=== PATIENT | female | born 1970 | race African-American/Black ===

== ENCOUNTER 2017-06-04 03:17 | Emergency (ER) | payer OTHER ==
[~2017-06-04] VITALS: Ht 165.1 cm; Wt 61.0 kg
[2017-06-04 03:41] VITALS: BP 138/84
[2017-06-04] MEDS ORDERED: PredniSONE 20 MG TABLET PO ONE (04:00)
[2017-06-04] MEDS: DiphenhydrAMINE HCL 25 MG CAPSULE PO ONE ×2 (04:07→04:10)
== END 2017-06-04 04:25 | disposition home or self-care (01) ==
LOC: EMS 03:18
DX: L50.9 Urticaria, unspecified (principal)
CPT/HCPCS: 99282; J7512